=== PATIENT | male | born 1970 ===

== ENCOUNTER 2018-04-19 10:56 | Emergency (ER) | payer MEDICAID ==
[~2018-04-19] VITALS: Ht 175.3 cm; Wt 74.4 kg
[2018-04-19 11:00] VITALS: BP 118/70
[2018-04-19] MEDS ORDERED: LIDOCAINE 1%-EPI 1:100K, 30ML ONE (11:21)
[2018-04-19] MEDS ORDERED: LIDOCAINE 1%-EPI 1:100K, 20ML SQ ONE (11:30)
== END 2018-04-19 11:57 | disposition home or self-care (01) ==
LOC: ED 11:52
DX: L02.414 Cutaneous abscess of left upper limb (principal); Z79.2 Long term (current) use of antibiotics; Z87.2 Personal history of diseases of the skin and subcutaneous tissue
CPT/HCPCS: 10060; 99283; J3490

== ENCOUNTER 2018-04-21 10:10 | Emergency (ER) | payer MEDICAID ==
[~2018-04-21] VITALS: Ht 175.3 cm; Wt 70.0 kg
[2018-04-21 10:15] VITALS: BP 123/75
== END 2018-04-21 10:46 | disposition home or self-care (01) ==
LOC: ED 10:28
DX: L02.414 Cutaneous abscess of left upper limb (principal); F17.200 Nicotine dependence, unspecified, uncomplicated
CPT/HCPCS: 99283

== ENCOUNTER 2018-10-23 15:10 | Emergency (ER) | payer MEDICAID ==
[~2018-10-23] VITALS: Ht 177.8 cm; Wt 72.0 kg
[2018-10-23 15:12] VITALS: BP 132/75
[2018-10-23] MEDS ORDERED: LIDOCAINE-MPF 1%, 5ML ONE (15:27)
[2018-10-23] MEDS ORDERED: LIDOCAINE-MPF 1%, 5ML INFIL ONE (15:30)
--- NOTE | 2018-10-23 15:31 | NUR ---
PT AMBULATORY TO ROOM 7 W/ C/O WD TO R THUMB STARTED 4 DAYS AGO. PT RESTING ON GURNEY. ZHANG.
== END 2018-10-23 16:03 | disposition home or self-care (01) ==
LOC: ED 15:46
DX: S61.031A Puncture wound without foreign body of right thumb without damage to nail, initial encounter (principal); S60.311A Abrasion of right thumb, initial encounter; X58.XXXA Exposure to other specified factors, initial encounter; Y93.89 Activity, other specified; Y92.89 Other specified places as the place of occurrence of the external cause; Y99.8 Other external cause status
CPT/HCPCS: 99283

== ENCOUNTER 2018-12-02 03:20 | Emergency (ER) | payer MEDICAID ==
[~2018-12-02] VITALS: Ht 177.8 cm; Wt 66.1 kg
[2018-12-02 03:22] VITALS: BP 109/73
--- NOTE | 2018-12-02 03:29 | NUR ---
C/O MULTIPLE DRIED WOUNDS ON UPPER AND LOWER EXTREMITIES. HX OF PSORIASIS per triage note
--- NOTE | 2018-12-02 04:01 | NUR ---
given dc instrucftion pt understood
== END 2018-12-02 04:04 | disposition home or self-care (01) ==
LOC: ED 04:03
DX: L40.0 Psoriasis vulgaris (principal); F10.10 Alcohol abuse, uncomplicated; F15.10 Other stimulant abuse, uncomplicated; F17.210 Nicotine dependence, cigarettes, uncomplicated
CPT/HCPCS: 99283

== ENCOUNTER 2020-01-21 21:15 | Emergency (ER) | payer MEDICAID ==
[~2020-01-21] VITALS: Ht 172.7 cm; Wt 73.9 kg
--- NOTE | 2020-01-21 22:20 | NUR ---
Pt amb w/ steady gait to room from lobby at this time.
[2020-01-21] MEDS ORDERED: CYCLOBENZAPRINE 10 MG TABLET PO STA (22:32)
[2020-01-21] MEDS ORDERED: CYCLOBENZAPRINE 10 MG TABLET ONE (22:52)
[2020-01-21 23:03] VITALS: BP 127/76
== END 2020-01-21 23:42 | disposition home or self-care (01) ==
LOC: ED 23:15
DX: S16.1XXA Strain of muscle, fascia and tendon at neck level, initial encounter (principal); L40.9 Psoriasis, unspecified; M54.2 Cervicalgia; M54.9 Dorsalgia, unspecified; F17.210 Nicotine dependence, cigarettes, uncomplicated; W22.8XXA Striking against or struck by other objects, initial encounter; Y93.89 Activity, other specified; Y92.89 Other specified places as the place of occurrence of the external cause; Y99.8 Other external cause status
CPT/HCPCS: 72125; 99284